=== PATIENT | male | born 1980 | race Caucasian/White ===

== ENCOUNTER 2019-03-24 17:56 | Outpatient (REF) | payer OTHER, SELFPAY ==
[2019-03-24 20:07] LABS: Abs Immature Grans 0.01 k/cumm (0.0-0.09); Absolute Basophil Count 0.01 k/cumm (0.0-0.2); Absolute Eosinophil Count 0.18 k/cumm (0.0-0.7); Absolute Lymphocyte Count 1.94 k/cumm (1.2-3.4); Absolute Monocyte Count 0.32 k/cumm (0.11-0.7); Absolute Neutrophil Count 3.31 k/cumm (1.2-6.7); Basophils % 0.2; Eosinophils % 3.1; HCT 42.6 % (40.0-50.0); HGB 14.3 g/dL (13.5-17.5); Immature Grans % 0.2; Lymphocytes % 33.6; Mean Corp. HGB Concentration 33.6 g/dL (32.0-36.0); Mean Corpuscular Hemoglobin 29.9 pg (27.0-33.0); Mean Corpuscular Volume 89.1 fL (80-95); Mean Platelet Volume 10.6 fL (8.0-11.0); Monocytes % 5.5; Neutrophils % 57.4; Platelet Count 239 x1000/uL (130-400); RBC 4.78 m/cumm (4.50-6.00); RBC Distribution Width 13.1 % (11.8-14.1); White Blood Cell Count 5.77 k/cumm (4.4-10.8)
[2019-03-24 20:57] LABS: Hemoglobin A1C 5.8 % (4.5-6.2)
[2019-03-24 21:37] LABS: ALT 32 U/L (12-78); AST 10 U/L (15-37); Albumin 4.6 g/dL (3.4-5.0); Alkaline Phosphatase 62 U/L (46-116); Anion Gap 7.1 mmol/L (3-11); BUN 15 mg/dL (7-18); Bilirubin, Total 1.1 mg/dL (0.2-1.0); CO2 31.9 mmol/L (21.0-32.0); CREATININE 1.03 mg/dL (0.70-1.30); Calcium 9.1 mg/dL (8.5-10.1); Chloride 103 mmol/L (98-107); Folate 19.6 ng/mL (8.6-20.0); Glucose 99 mg/dL (70-100); Potassium 4.1 mmol/L (3.5-5.1); Sodium 142 mmol/L (136-145); TSH (W/Ref FT4) 2.44 uIU/mL (0.358-3.74); Total Protein 7.5 g/dL (6.4-8.2); Vitamin B12 640 pg/mL (193-986)
[2019-03-24 21:42] LABS: ESR 3 MM/HR (0-15)
[2019-03-28 11:32] LABS: Lyme Ab w Rflx to Lyme Confirm Negative
== END 2019-03-24 18:16 ==
LOC: NCHCN 17:56
PROVIDERS: PCP Family Medicine; Visit Provider Family Medicine
DX: R53.83 Other fatigue (principal); G47.00 Insomnia, unspecified; E66.9 Obesity, unspecified; W57.XXXA Bitten or stung by nonvenomous insect and other nonvenomous arthropods, initial encounter; T14.8XXA Other injury of unspecified body region, initial encounter
CPT/HCPCS: 80053; 85652; 82607; 82746; 83036; 84443; 85025; 86618

== ENCOUNTER 2020-07-05 01:07 | Outpatient (CLI) | payer BC, SELFPAY ==
--- NOTE | 2020-07-05 | DI.US_ITS ---
EXAM: US SOFT TISSUE HEAD OR NECK CLINICAL HISTORY: LUMP, R22.9,TENDER,SOFT,PALPABLE RAISED AREA LT SIDE OF HEAD ABOVE LT EAR TECHNIQUE: Ultrasound performed using standard protocol. COMPARISON: No exams were available for comparison FINDINGS: Soft tissue ultrasound was performed to evaluate a supra auricular palpable mass on the left. Ultras ound shows a 22 x 21 x 7 millimeter in diameter hypoechoic mildly heterogeneous mass with some media intern al vascularity. This appears fairly well-circumscribed. The appearance is nonspecific, the differen tial diagnosis would include atypical lymph node, benign or malignant soft tissue tumor, or perhaps i nfected lipoma. Additional evaluation with MRI may be considered, or tissue sampling may be obtained . IMPRESSION: Supra auricular left soft tissue mass as described above, MR and/or tissue sampling recommended. DATA REPOSITORY:
== END 2020-07-05 01:27 ==
PROVIDERS: PCP Family Medicine; Visit Provider Nurse Practitioner
DX: R22.0 Localized swelling, mass and lump, head (principal)
CPT/HCPCS: 76536

== ENCOUNTER 2022-06-24 17:53 | Outpatient (REF) | payer BC, SELFPAY ==
[2022-06-24 15:46] LABS: Abs Immature Grans 0.03 10^3/uL (0.0-0.06); Absolute Basophil Count 0.03 10^3/uL (0.0-0.2); Absolute Eosinophil Count 0.19 10^3/uL (0.0-0.7); Absolute Lymphocyte Count 1.88 10^3/uL (1.2-3.4); Absolute Monocyte Count 0.43 10^3/uL (0.1-0.8); Absolute Neutrophil Count 4.36 10^3/uL (1.2-6.7); Basophils % 0.4; Eosinophils % 2.7; HCT 45.1 % (40.0-50.0); HGB 14.8 g/dL (13.5-17.5); Immature Grans % 0.4; Lymphocytes % 27.2; MCH 29.1 pg (27.0-33.0); MCHC 32.8 % (32.0-36.0); MCV 89 fL (80-95); MPV 10.8 fL (8.0-11.0); Monocytes % 6.2; Neutrophils % 63.1; Platelet Count 260 10^3/uL (130-400); RBC 5.09 10^6/uL (4.36-5.78); RDW 13.1 % (11.8-14.1); RDW-SD 42.9 fL; WBC 6.92 10^3/uL (4.4-10.8)
[2022-06-24 16:14] LABS: ALT 34 U/L (16-63); AST 22 U/L (15-37); Albumin 4.4 g/dL (3.4-5.0); Alkaline Phosphatase 66 U/L (46-116); Anion Gap 11.1 mmol/L (3-11); BUN 19 mg/dL (7-18); Bilirubin, Total 1.3 mg/dL (0.2-1.0); CO2 24.9 mmol/L (21.0-32.0); Calcium 9.8 mg/dL (8.5-10.1); Calculated LDL 113 mg/dL (<100); Chloride 103 mmol/L (98-107); Cholesterol 170 mg/dL (<200); Estimated GFR 96.97 (mL/min/1.73m2); Glucose 97 mg/dL (74-106); HDL Cholesterol 45 mg/dL (40-60); Potassium 4.5 mmol/L (3.5-5.1); Sodium 139 mmol/L (136-145); TSH (W/Ref FT4) 1.51 uIU/mL (0.36-3.74); Total Protein 8.1 g/dL (6.4-8.2); Triglyceride 61 mg/dL (<150)
[2022-06-24 16:58] LABS: Hemoglobin A1C 5.5 % (<5.7)
== END 2022-06-24 17:54 | disposition home or self-care (01) ==
LOC: NCHCN 17:53
PROVIDERS: PCP Family Medicine; Visit Provider Nurse Practitioner Family
DX: Z00.00 Encounter for general adult medical examination without abnormal findings (principal); R53.83 Other fatigue; R73.09 Other abnormal glucose; F41.8 Other specified anxiety disorders; R41.840 Attention and concentration deficit; G47.00 Insomnia, unspecified; E66.8 Other obesity
CPT/HCPCS: 80053; 80061; 83036; 84443; 85025

== ENCOUNTER 2023-10-27 10:23 | Outpatient (CLI) | payer BC, SELFPAY ==
--- NOTE | 2023-10-27 09:14 | DI.RAD_ITS ---
Exam(s) XR ELBOW RT COMPLETE EXAM: XR ELBOW RT COMPLETE CLINICAL HISTORY: RIGHT ELBOW PAIN. TECHNIQUE: 2D digital imaging was performed of the left elbow. Three images were obtained. AP, lat eral and oblique views were obtained. COMPARISON: No exams were available for comparison FINDINGS: BONES: No acute fracture is present. No bony destructive lesion is seen. There is a well corticated o sseous density at the olecranon which may represent an enthesophyte. There is a lucency through the base of the bone which may represent a fracture. JOINTS: The elbow is normally aligned. No joint effusion is seen. SOFT TISSUE: Normal. IMPRESSION: Large olecranon enthesophyte. There is a lucency through the base of the enthesophyte which may repr esent a fracture. DATA REPOSITORY: RADIATION DOSE DELIVERED:
== END 2023-10-27 10:24 | disposition home or self-care (01) ==
LOC: DIORS 10:23
PROVIDERS: PCP Family Medicine; Visit Provider Student in an Organized Health Care Education/Training Program
DX: M25.521 Pain in right elbow (principal); M77.8 Other enthesopathies, not elsewhere classified
CPT/HCPCS: 73080

== ENCOUNTER → 2023-11-06 01:23 | Outpatient (CLI) | payer BC, SELFPAY ==
--- NOTE | 2023-11-06 09:15 | DI.MRI_ITS ---
Exam(s) MR UPPER JOINT RT WO EXAM: MR UPPER JOINT RT WO CLINICAL HISTORY: R ELBOW PAIN,RUPTURE RT TRICEPS TENDON,S46.311A TECHNIQUE: Multiplanar multisequence MRI was performed without intravenous contrast. COMPARISON: CR XR ELBOW RT COMPLETE from 10/27/2023 FINDINGS: MARROW: There is bone contusion signal evident in the posterior olecranon and there is abnormal high signal evident within a posterior in these 0 fight at this level, this corresponding to the finding d escribed on the recent plain films. There is also fluid signal interposed between this enthesophyte and the adjacent parent bone. These findings are consistent with fracture at the base of the entheso phyte at its junction with the parent bone. The triceps tendon at this level exhibits increased signal and focal tearing of the mid aspect of the tendon attachment onto the posterior olecranon. The bilateral peripheral aspects of the tendon stil l remain attached to the posterior olecranon. There is no retraction of the tendon. ELBOW JOINT: Small amount of increased joint fluid. No loose intra-articular bodies.In no significan t degenerative changes. No evidence of osteochondral defects. No evidence of ganglion cysts. EPICONDYLES: There is no abnormal intraosseous signal in the epicondyles and there is no significant abnormal signal on the common extensor and flexor tendons. ULNAR COLLATERAL LIGAMENT: The anterior band which extends from the medial epicondyle to the sublime tubercle of the coronoid process of the ulna is intact. This structure is the strongest ligament in t he elbow and is the main opponent to severe valgus stress. RADIAL COLLATERAL LIGAMENT: Intact OTHER TENDONS: The biceps tendon is intact. The brachialis tendon is intact. CUBITAL TUNNEL/ULNAR NERVE: The ulnar nerve appears unremarkable beneath the cubital tunnel retinacul um/ arcuate ligament and posterior to the medial epicondyle. There is no evidence of arthritic spur arising from the epicondyle nor olecranon causing impingement on the ulnar nerve. There is no eviden ce of accessory anconeus muscle causing impingement at this level. There is also no evidence of soft tissue mass nor ganglia on cyst causing impingement at this level. OTHER FINDINGS: IMPRESSION: 1. There is a fracture at the base of the 10 mm long enthesophyte on the posterior olecranon with mil d separation of the enthesophyte from the adjacent parent bone. 2. There is only partial full-thickness tearing at the triceps insertion onto the posterior olecranon this level. In the axial plane the width of the entire insertion is 1.8 cm. The focal is of full-t hickness tear involves the central 4 mm, with the remaining tendon on both sides of this no remaining attached to the posterior aspect of the osseous olecranon. There is signal abnormality in the anita ps tendon above this level for a distance of 1.8 cm but there is no obvious retraction. DATA REPOSITORY:
== END ==
PROVIDERS: PCP Nurse Practitioner Family; Visit Provider Student in an Organized Health Care Education/Training Program
DX: S46.311A Strain of muscle, fascia and tendon of triceps, right arm, initial encounter (principal); X58.XXXA Exposure to other specified factors, initial encounter
CPT/HCPCS: 73221

== ENCOUNTER 2023-12-11 08:51 | Day surgery (SDC) | payer BC, SELFPAY ==
[2023-12-11] VITALS (23 sets, daily range): BP systolic 106–156; BP diastolic 56–97; PULSE 60–79; RESP 12–22; TEMP 36.1–37.1; O2SAT 91–100; BMI 37.3
--- NOTE | 2023-12-11 07:16 | W.PM.DSUDISC ---
Date of service: 12/11/23 Time of Service: 14:00 Discharge Plan Disposition Patient Disposition: Home Condition: Stable Discharge Details Attending Provider: David Galvez Primary Care Provider: KRISTI LILLY Home Meds and New Rx's Prescriptions: New naproxen 250 mg tablet 250 - 500 mg PO BID PRN (Reason: Moderate pain) Qty: 40 0RF oxycodone 5 mg tablet 5 - 10 mg PO Q4H PRN (Reason: Moderate to severe pain) Qty: 9 0RF Continued lisdexamfetamine [Vyvanse] 20 mg capsule 20 mg PO DAILY bupropion HCl [Wellbutrin SR] 100 mg tablet sustained-release 12 hr 150 mg PO BID acetylcysteine [NAC] 600 mg capsule 600 mg PO BID cholecalciferol (vitamin D3) 25 mcg (1,000 unit) capsule 25 mcg PO DAILY apple cider vinegar 600 mg capsule 600 mg PO DIRECTED Discharge Instructions Additional Instructions: Surgery: Right distal triceps tendon repair Activity: Non-weightbearing right upper extremity for 6 weeks. maintain elbow bent about 90 degrees in splint until follow-up. Encourage wrist hand and finger range of motion to prevent stiffness and improve circulation. Recommend elevation to minimize swelling and discomfort. Transition to hinged elbow brace at follow-up. A physical therapy prescription will be sent to start in about 3 weeks. Protocol? No ACTIVE elbow extension for 6 weeks Gradually increase flexion about 10 degrees per week from 90 degrees week 2 to full flexion around postop week 8 Start strengthening at 10-12 weeks postop (isometrics okay in full extension after 8 weeks) Concentric strengthening at 3 months, isometric at 4 months, and sports around 6 months postop. Prescriptions: Naproxen 250 mg take 1-2 every 12 hours with a meal as needed for moderate pain Oxycodone 5 mg take 1-2 every 4-6 hours as needed for severe pain You may use [id number] Tylenol (acetaminophen) as needed for mild pain. These pain medications may be taken all at once or in different combinations as needed. Also, recommend Colace (docusate) as a stool softener as surgery and pain medicine cause constipation. You may try [id number] diphenhydramine (Benadryl) 25-50 mg nightly as a sleep aid Dressings: Leave splint and dressing in place until follow-up. Keep clean and dry at all times. You may loosen/adjust Ti bandage as as needed for comfort. Follow-up: 10-[address] Galvez You may take off the leg compression stockings this evening at home. You may also leave them on a few days longer if you have a history of leg swelling or edema. Let us know right away if you develop any redness, drainage, fevers, chest pain, or trouble breathing. Do not drink alcohol or drive for at least 24 hours after anesthesia. Please call the office during business hours with any questions or concerns. Stand Alone Forms: Anesthesia Discharge Inst., [facility].Nerve Block Instructions, Ernesto Hunt ([facility]) Referrals: David Galvez MD [ [facility] STAFF PHYSICIAN] - 12/23/23 10:00 am Discharge Orders Discharge Orders: Discharge Order (Routine); Ordered 12/11/23 Ordered By: Reza Granda DS: Diagnosis Discharge Diagnosis (1) Rupture of right triceps tendon: Status: Acute
--- NOTE | 2023-12-11 09:10 | W.ANESPRE ---
General Info Date of Service Date Performed: 12/11/23 Height: 6 ft Weight: 124.9 kg Body Mass Index (BMI): 37.3 Surgical Procedure: Operation Date: 12/11/23 11:25 Proposed Procedure Side Surgeon p Elbow Triceps Tendon Repair Right David Galvez MD Meds Allergies and Home Medications Allergies Allergy/AdvReac Type Severity Reaction Status Date / Time DUST AdvReac Intermediate Other (See Uncoded 12/11/23 09:07 Comment) Home Medication Medication Instructions Recorded lisdexamfetamine 20 mg capsule 20 mg PO DAILY 10/27/23 (Vyvanse) acetylcysteine 600 mg capsule (NAC) 600 mg PO BID 10/28/23 apple cider vinegar 600 mg capsule 600 mg PO DIRECTED 10/28/23 bupropion HCl 100 mg tablet,12 hr 150 mg PO BID 10/28/23 sustained-release (Wellbutrin SR) cholecalciferol (vitamin D3) 25 25 mcg PO DAILY 10/28/23 mcg (1,000 unit) capsule aspirin 81 mg tablet,delayed 81 mg PO DAILY Prevent blood clot 12/11/23 release 7 days #7 tabs naproxen 250 mg tablet 250 - 500 mg (1 - 2 x 250 mg) PO 12/11/23 BID PRN Moderate pain #40 tabs oxycodone 5 mg tablet 5 - 10 mg (1 - 2 x 5 mg) PO Q4H 12/11/23 PRN Moderate to severe pain #18 tabs Current Visit Medications: Current Medications Generic Name Dose Route Start Last Admin Trade Name Freq PRN Reason Stop Dose Admin Cefazolin Sodium 3,000 mg/ 100 mls @ 200 mls/hr 12/11/23 06:00 Sodium Chloride IVPB 12/11/23 16:00 PREOP LEE Ringer's Solution 1,000 mls @ 30 mls/hr 12/11/23 06:00 IV 01/09/24 23:59 INFUSION [facility] IV Miscellaneous Supplies 1 each 12/11/23 06:00 Iv Access IV 01/09/24 23:59 DIRECTED LEE Oxycodone HCl 0 mg 12/11/23 07:15 Oxycodone 5 Mg Tab PO 01/10/24 07:14 Q3H PRN PRN Pain Sodium Chloride 0 ml 12/11/23 06:00 Normal Saline Flush 10 Ml Syr IV 01/09/24 23:59 PRN PRN Sodium Chloride 0 ml 12/11/23 06:00 Normal Saline 10 Ml Vial IJ 01/09/24 23:59 DIRECTED PRN Sterile Water 0 ml 12/11/23 06:00 Water,Injection,Sterile 10 Ml Vial IJ 01/09/24 23:59 DIRECTED PRN PFSH Active Problems Active Problems: Problem Status Onset Code Prediabetes R73.03 Rupture of right triceps tendon S46.311A Medical History Medical History Anxiety ADHD Dyslipidemia Surgical History Surgical History History of appendectomy Tobacco Smoking/Tobacco Use Status: Never Alcohol Alcohol Intake: never Substance Use Substance use: Never Substance use type: does not use Vital Signs and Lab Results Vital Signs Most Recent Vital Signs in EMR: Most Recent Vital Signs Temp Pulse Resp BP Pulse Ox 36.2 C L 72 16 147/87 H 100 12/11/23 08:55 12/11/23 08:55 12/11/23 08:55 12/11/23 08:55 12/11/23 08:55 Lab Results Blood Type / Crossmatch: No Data to Display Complete Blood Count: No Data to Display Complete Metabolic Panel: No Data to Display Liver Function Panel: No Data to Display Coagulation Panel: No Data to Display Cardiac Panel: No Data to Display Arterial Blood Gas: No Data to Display Venous Blood Gas: No Data to Display Pancreas Panel: No Data to Display Thyroid Panel: No Data to Display Infectious Disease: No Data to Display Blood Cultures: No Data to Display Toxicology Panel: No Data to Display Anesthesia Assessment and Plan Anesthesia History Personal History: No History of Anesthesia Complications Family History: No Family History of Anesthesia Complications Exercise Tolerance Exercise Tolerance: Metabolic Equivalents>4 Pertinent Negatives Pertinent Negatives: No Symptoms of GERD, No Major Cardiovascular Symptoms or Complaints, No Major Pulmonary Symptoms or Complaints and No History of CVA/TIA Cardiac & Pulmonary Exam Cardiac Exam: Normal S1/S2 Heart Sounds Pulmonary Exam: Clear Bilateral Breath Sounds Implantable Cardiac Device Does patient have a Pacemaker or an ICD?: No Airway Exam Known Difficult Airway: No Mallampati Class: 2 Mouth Opening: Normal (> 3cm) Thyromental Distance: Greater than 3 cm Neck Range of Motion: Full ROM Neck Circumference: Normal Teeth Condition: Normal Dentition ASA Classification ASA Score: ASA 2 Emergency Case?: No NPO Status NPO Status: NPO Clears >2 hours, Solids >8 hours Anesthesia Plan Resuscitation Status: Full Code Anesthesia Technique: General Anesthesia Airway Planned: Endotracheal Tube Pain Management: Surgeon and patient request nerve block Monitors Used: Standard Monitors
[2023-12-11] MEDS: Lactated Ringers 1,000 ML 30 ML IV (09:36)
--- NOTE | 2023-12-11 09:41 | W.ANESNERVE ---
Nerve Block Single Injection Procedure Date and Time Date Performed: 06/28/21 Procedure Start: 09:50 Location Where Procedure Performed Procedure Location: Day Surgery Unit Reason Performed: Postoperative Analgesia Requesting Provider: David Galvez Timeout Performed Timeout Performed: Yes Monitoring Used ECG, Blood Pressure, SpO2 and See EMR for corresponding vital signs Sterility Sterility: Hand Hygiene, Surgical Cap, Surgical Mask, Sterile Gloves and Chlorhexidine Sedation Given During Procedure Sedation Given (Indicate Dose Given): Versed IV Dose:: 2 mg Patient Mental Status Patient Mental Status: Sedate with meaningful communication Nerve Block 1st Nerve Block: Laterality: Right Block Type: Supraclavicular Ultrasound Image Saved?: Yes Needle / Catheter Used: 100mm SonoPlex II Local Anesthetic Bolus (Indicate Dose Given): Lidocaine used for local infiltration of skin, Injected in 3-5ml increments after negative blood aspiration, Bupivacaine 0.5% Dose:: 10 mL and Exparel Dose:: 10 mL Additives (Indicate Dose Given): None Ultrasound: Sterile probe cover and gel used Nerve Stimulator: Supplement to Ultrasound use Paresthesia: None Procedure Tolerated: No Complications and Patient tolerated well Procedure Outcome: Successful Performed By: Miranda Mendes
--- NOTE | 2023-12-11 10:21 | W.PM.OP ---
Date of service: 12/11/23 Time of Service: 12:00 Operative Note Operative Note DATE OF PROCEDURE: 12/11/23 PRE-OP DIAGNOSIS: Right elbow 1. High-grade distal triceps tendon rupture through enthesophyte fracture 2. Chronic olecranon bursitis POST-OP DIAGNOSIS: same PROCEDURE: Right elbow 1. Distal triceps tendon repair, CPT #26866 2. Excision of olecranon bursa, CPT # 43481 SURGEON: David Galvez BAGGING MACHINE OPERATOR: Reza Granda ANESTHESIA TYPE: Local By Surgeon, General LMA/ETT and Primary Nerve Block Refer to Anesthesia Record ESTIMATED BLOOD LOSS: 5 TOURNIQUET TIME: 0 COMPLICATIONS: None Patient was transported to: PACU Patient's condition: stable Implants: Arthrex 4.75 mm bio composite SwiveLock Indications: Please see complete medical record for details. Findings: Large olecranon enthesophyte fracture causing about 50% distal triceps tendon disruption centrally and superficially from the olecranon. Moderate overlying olecranon bursitis. Procedure Description: In the operating room, general anesthesia was induced. The patient was positioned lateral on the operating room table. All bony prominences were well-padded. Preoperative antibiotics were administered. The elbow was prepped and draped in the usual sterile fashion. The correct patient, procedure, and side of the procedure were all verified prior to incision. A longitudinal incision was preinjected with 30 cc of 0.25 bupivacaine containing epinephrine about the distal triceps, curving radially around the obvious olecranon bony prominence, and then extending distally in line with the ulna slightly into the proximal forearm. Skin was opened exposing a moderately abundant and chronically scarred and inflamed olecranon bursa. The margin of the bursa were dissected out and then the bursa sac was removed. The enthesophyte fracture was readily identified and mobile relative to the remainder of the olecranon. The distal triceps was attached and intact although slightly abnormal and detentions to this large bony fragment. Sharp dissection was used to shell out this piece of bone while maintaining triceps tendon length. The fracture fragment was removed in entirety and the wafer size piece was about 15 mm long by 10 mm wide by 5 mm thick. The olecranon was then smoothed and contoured to remove any residual dorsal bony prominence. The triceps tendon was debrided lightly to good tissue quality and the central area of defect on the insertion on the olecranon was prepared and abraded to optimize bone and tendon healing. An Arthrex suture tape was started deeply in the tendon over the repair footprint and whipstitched proximally and then across the tendon and back down distally exiting at the footprint with the other tail. A second suture tape was similarly started about the footprint deeply and then run up the tendon proximally in a Krak?w fashion, across, and distally also in a locking stitch fashion exiting at the repair site as well. The 4 suture tails had good tissue hold and reduction of the tendon to the prepared bony bed. The tendon was retracted with the sutures, the central part of the tendon footprint was prepared for the suture anchor with the 2.5 mm drill to the 20 mm depth followed by the punch and then tap. The triceps repair sutures were then loaded on the 4.75 mm SwiveLock anchor, which was deployed with excellent tension and fixation strength on the tendon. The remaining in the knotless repair mechanism was used to close the small tendon defect over the suture anchor by shuttling the repair suture from deep to superficial on 1 side of the tendon and the length shuttling suture similarly on the other side of the tendon with a free needle. The repair suture was then shuttled through the anchor knotless mechanism and tension nicely closing the overlying tendon over the suture anchor. The repair was inspected and stable past 90 degrees of elbow flexion without any displacement or gapping. Care was taken to ensure there was no residual bony or tendon prominence about the posterior elbow. The wound was copiously irrigated normal saline. Subcutaneous tissue was closed with 2-0 Monocryl buried interrupted. Skin was closed with 3-0 Monocryl subcuticular running. Steri-Strips applied across the incision followed by Xeroform, 4 x 4 gauze, and sterile soft roll. A long-arm posterior plaster splint was then applied maintaining the elbow in just less than 90 degrees of flexion and forearm in neutral rotation. The patient awoke from anesthesia without complication and was transferred to the recovery room in stable fashion.
[2023-12-11] MEDS: ceFAZolin 3,000 MG in Normal Saline 100 ML 200 MG IVPB (10:49)
[2023-12-11] MEDS: Tranexamic Acid 1,000 MG/10 ML VIAL 1000 MG (11:26)
--- NOTE | 2023-12-11 14:42 | W.ANESPOSTOP ---
Postoperative Evaluation Date, Time and Location Date Performed: 12/11/23 Time Performed: 14:21 Patient Location: Day Surgery Unit Vital Signs Most Recent Imported Vital Signs: Most Recent Vital Signs Temp Pulse Resp BP Pulse Ox 36.2 C L 62 14 119/66 94 12/11/23 14:30 12/11/23 14:30 12/11/23 14:30 12/11/23 14:30 12/11/23 14:30 Pain Score Most Recent Pain Score: Most Recent Pain Score Pain Level 0 12/11/23 14:30 Assessment Mental Status: Awake (Alert & Oriented to Patient Baseline) Airway and Respiratory Function: Patent airway with normal (patient baseline) respiratory exam Cardiovascular Function: Hemodynamically Stable Hydration Status: Adequately Hydrated Nausea & Vomiting: No Nausea or Vomiting Pain: Pt. Denies Any Pain Peripheral Nerve Block: Regional nerve block not resolved at time of post operative discharge
== END 2023-12-11 14:50 | disposition home or self-care (01) ==
LOC: SUR 08:52
PROVIDERS: PCP Nurse Practitioner Family; Visit Provider Student in an Organized Health Care Education/Training Program
PROC: (CPT 24341; principal; 2023-12-11 11:15)
DX: S46.311A Strain of muscle, fascia and tendon of triceps, right arm, initial encounter (principal)
CPT/HCPCS: 24342; 24105; 76942; C9290; J0131; J0665; J0690; J1100; J1885; J2001; J2250; J2405; J2704

== ENCOUNTER 2024-02-16 18:39 | Outpatient (REF) | payer BC, SELFPAY ==
[2024-02-16 19:37] LABS: HCT 46.2 % (40.0-50.0); HGB 15.1 g/dL (13.5-17.5); MCH 29.1 pg (27.0-33.0); MCHC 32.7 % (32.0-36.0); MCV 89 fL (80-95); MPV 10.5 fL (8.0-11.0); Platelet Count 231 10^3/uL (130-400); RBC 5.19 10^6/uL (4.36-5.78); RDW 12.5 % (11.8-14.1)
[2024-02-16 19:53] LABS: Hemoglobin A1C 5.8 % (<5.7)
[2024-02-16 20:08] LABS: ALT 35 U/L (16-63); AST 11 U/L (15-37); Albumin 4.5 g/dL (3.4-5.0); Alkaline Phosphatase 57 U/L (46-116); Anion Gap 11.9 mmol/L (3-11); BUN 22 mg/dL (7-18); Bilirubin, Total 1.3 mg/dL (0.2-1.0); CO2 26.1 mmol/L (21.0-32.0); CREATININE 1.2 mg/dL (0.70-1.30); Calcium 9.2 mg/dL (8.5-10.1); Calculated LDL 104 mg/dL (<100); Chloride 104 mmol/L (98-107); Cholesterol 164 mg/dL (<200); Estimated GFR 77.43 (mL/min/1.73m2); Glucose 105 mg/dL (74-106); HDL Cholesterol 42 mg/dL (40-60); Potassium 4.3 mmol/L (3.5-5.1); Sodium 142 mmol/L (136-145); TSH (W/Ref FT4) 1.49 uIU/mL (0.36-3.74); Total Protein 7.2 g/dL (6.4-8.2); Triglyceride 92 mg/dL (<150)
== END 2024-02-16 18:40 | disposition home or self-care (01) ==
LOC: NCHCN 18:39
PROVIDERS: PCP Nurse Practitioner Family; Visit Provider Nurse Practitioner Family
DX: R73.03 Prediabetes (principal); F90.9 Attention-deficit hyperactivity disorder, unspecified type; E78.5 Hyperlipidemia, unspecified
CPT/HCPCS: 80053; 80061; 85027; 83036; 84443

== ENCOUNTER 2025-04-19 15:18 | Outpatient (REF) | payer BC, SELFPAY ==
[2025-04-19 17:34] LABS: ALT 41 U/L (16-63); AST 18 U/L (15-37); Albumin 4.7 g/dL (3.4-5.0); Alkaline Phosphatase 65 U/L (46-116); Anion Gap 9.5 mmol/L (3-11); BUN 17 mg/dL (7-18); Bilirubin, Total 0.9 mg/dL (0.2-1.0); CO2 28.5 mmol/L (21.0-32.0); Calcium 9.6 mg/dL (8.5-10.1); Chloride 104 mmol/L (98-107); Estimated GFR 95.77 (mL/min/1.73m2); Glucose 107 mg/dL (74-106); Potassium 4.5 mmol/L (3.5-5.1); Sodium 142 mmol/L (136-145); Total Protein 7.8 g/dL (6.4-8.2)
[2025-04-19 17:36] LABS: Hemoglobin A1C 5.5 % (<5.7)
== END 2025-04-19 15:19 | disposition home or self-care (01) ==
LOC: NCHCN 15:18
PROVIDERS: PCP Nurse Practitioner Family; Visit Provider Nurse Practitioner Family
DX: Z00.00 Encounter for general adult medical examination without abnormal findings (principal)
CPT/HCPCS: 80053; 83036